=== PATIENT | female | born 1980 | race Caucasian/White ===

== ENCOUNTER 2017-10-30 11:08 | Emergency (ER) | payer MEDICAID ==
[2017-10-30] MEDS ORDERED: LORazepam INJ* 2 MG/ML 1 ML VIAL IV PUSH ONE (12:15)
[2017-10-30] MEDS ORDERED: diPHENhydraMINE IV* 50 MG/ML 1 ml VIAL (BENADRYL) ONE ×2 (12:30)
[2017-10-30] MEDS ORDERED: Haloperidol INJ IV/IM* 5 MG/ML AMP ONE ×2 (12:30)
[2017-10-30] MEDS ORDERED: LORazepam INJ* 2 MG/ML 1 ML VIAL ONE ×2 (12:30)
--- NOTE | 2017-10-30 13:10 | RAD ---
HISTORY: Syncope COMPARISONS: None VIEWS: 1: frontal portable view of the chest at 12:48 PM FINDINGS: LINES AND TUBES: None. CARDIOMEDIASTINAL SILHOUETTE: The cardiomediastinal silhouette is normal for portable technique. PLEURA: The costophrenic angles are sharp. No pleural abnormalities are noted. LUNG PARENCHYMA: The lungs are clear. ABDOMEN: The upper abdomen is clear. There is no subphrenic gas. BONES AND SOFT TISSUES: No bone or soft tissue abnormalities are noted. IMPRESSION: NO ACTIVE CARDIOPULMONARY DISEASE.
[2017-10-30 13:46] LABS: ABS Basophils 0 10^3/ul (0-0.2); ABS Eosinophils 0 10^3/ul (0-0.6); ABS Lymphocytes 1.1 10^3/ul (1.0-4.8); ABS Monocytes 0.6 10^3/ul (0-0.8); ABS Neutrophils 7.2 10^3/ul (1.5-7.7); ABS Nucleated RBC 0 10^3/ul; Eosinophil % 0.1 % (0-6); Hematocrit 37 % (35-47); Hemoglobin 12.6 g/dl (12.0-16.0); Mean Corpuscular HGB Conc 34 g/dl (31-36); Mean Corpuscular Hemoglobin 31 pg (27-31); Mean Corpuscular Volume 92 fL (80-97); Mean Platelet Volume 10.3 um3 (7.4-10.4); Nucleated Red Blood Cells % 0.1; Platelet Count 205 10^3/ul (150-450); Red Blood Count 4.02 10^6/ul (4.0-5.4); Red Cell Distribution Width 13 % (10.5-15); White Blood Count 8.9 10^3/ul (3.5-10.8)
[2017-10-30 14:02] LABS: EGFR Non-African American 80.5 (>60)
[2017-10-30] MEDS ORDERED: Potassium Chlor TAB* 20 MEQ TAB.ER PO ONE (14:56)
--- NOTE | 2017-10-30 20:45 | RAD ---
HISTORY: Altered mental status, psychosis COMPARISONS: None TECHNIQUE: Multiple contiguous axial CT scans were obtained of the head without intravenous contrast. FINDINGS: HEMORRHAGE/INFARCT: There is no hemorrhage or acute infarct. MASSES/SHIFT: There is no mass or shift. EXTRA-AXIAL SPACES: There are no extra-axial fluid collections. SULCI AND VENTRICLES: The sulci and ventricles are normal in size and position for the patient's stated age. CEREBRUM: There are no focal parenchymal abnormalities. BRAINSTEM: There are no focal parenchymal abnormalities. CEREBELLUM: There are no focal parenchymal abnormalities. VESSELS: The vessels are grossly normal. PARANASAL SINUSES: The paranasal sinuses are clear. ORBITS: The orbits are unremarkable. BONES AND SOFT TISSUE: No bone or soft tissue abnormalities are noted. OTHER: None IMPRESSION: NO ACUTE INTRACRANIAL PATHOLOGY.
[2017-10-31 01:12] VITALS: BP 121/75
--- NOTE | 2017-10-31 01:13 | ED ---
Sotero Amador Tiffany, edgared for Ivonne Valverde MD on 10/31/17 at 0100 . Progress - Progress Note Progress Note: Pt signed out from Dr. Nevarez. John, mental health dye weigher, discussed pt care with Dr. Rascon, psychiatry. Pt feels better with sleep and food. - Consult/PCP Time Called: 11:08 Course/Dx - Course Course Of Treatment: 37 y/o F, signed out from BRIAN Casillas presents with AMS that began 2 weeks ago, worsening 3 days ago. John, mental health dye weigher , discussed pt care with Dr. Rascon, psychiatry. Pt feels better with sleep and food, is agreeable to go home. - Diagnoses Provider Diagnoses: Stress and adjustment reaction Discharge - Sign-Out/Discharge Documenting (check all that apply): Discharge/Admit/Transfer - Discharge Plan Condition: Stable Disposition: HOME Patient Education Materials: Stress (ED) Referrals: Taras Singletary MD [Primary Care Provider] - The documentation as recorded by the Sotero bowens Tiffany accurately reflects the service I personally performed and the decisions made by me, Ivonne Valverde MD.
--- NOTE | 2017-11-02 09:40 | ED ---
Fauzia Amador Rebecca, scribed for Galindo Nevarez MD on 10/30/17 at 1139 . Psychiatric Complaint - HPI Summary HPI Summary: Pt is a 37 y/o F [place]IB[place] who presents to ED due to AMS described as manic per partner. Sx began 2 weeks ago, worsening Saturday night (3 days ago), described as a rather significant manic episode. Partner reports visual and auditory hallucinations as well as decreased sleep. Reports she slept 4 hours last night and 2 hours the night prior. He suspects her symptoms were brought on by recent stress of her graduation from [employer]. No recent trauma or falls. PMHx bipolar disorder - last similar episode was 9 years ago. Treated for Lyme disease with Doxycycline for 1 month, finishing treatment 1 week ago. All history obtained from the patients partner, who accompanies her. Level 5 caveat due to AMS. - History Of Current Complaint Time Seen by Provider: 10/30/17 11:18 Hx Obtained From: Family/Print Developer - Partner Hx From Patient Unobtainable Due To: Altered Mental Status Onset/Duration: Lasting Weeks - 2 weeks, Still Present, Worse Since - 3 days ago Character: Manic Aggravating Factor(s): Recent Stress Alleviating Factor(s): Nothing Associated Signs And Symptoms: Positive: Hallucinating, Sleep Disturbance Related History: Positive For: Prior Psychiatric Issues - Bipolar - Allergies/Home Medications Allergies/Adverse Reactions: Allergies Allergy/AdvReac Type Severity Reaction Status Date / Time No Known Allergies Allergy Verified 10/30/17 14:35 Home Medications: Home Medications NK [No Home Medications Reported] 10/30/17 [History Confirmed 10/30/17] PMH/Surg Hx/FS Hx/Imm Hx Musculoskeletal History: Reports: Other Musculoskeletal History - Hx Lyme disease Psychiatric History: Reports: Hx Bipolar Disorder Infectious Disease History: No Infectious Disease History: Denies: Traveled Outside the [place] in Last 30 Days - Family History Known Family History: Positive: Unknown - Unable to obtain - level 5 caveat - Social History Alcohol Use: Occasionally Substance Use Type: Reports: Marijuana - Nightly Smoking Status (MU): Never Smoked Tobacco Review of Systems Neurological: Other - AMS - manic, hallucinations (auditory and visual), decreased sleep All Other Systems Reviewed And Are Negative: No - Comments Additional Review of Systems Comments: Level 5 caveat - AMS Physical Exam - Summary Physical Exam Summary: VITAL SIGNS: Reviewed. GENERAL: Patient is a well-developed and nourished female who is lying comfortable in the stretcher. Patient is not in any acute respiratory distress. HEAD AND FACE: No signs of trauma. No ecchymosis, hematomas or skull depressions. No sinus tenderness. EYES: PERRLA, EOMI x 2, No injected conjunctiva, no nystagmus. EARS: Hearing grossly intact. Ear canals and tympanic membranes are within normal limits. MOUTH: Oropharynx within normal limits. NECK: Supple, trachea is midline, no adenopathy, no JVD, no carotid bruit, no c- spine tenderness, neck with full ROM. CHEST: Symmetric, no tenderness at palpation LUNGS: Clear to auscultation bilaterally. No wheezing or crackles. CVS: Regular rate and rhythm, S1 and S2 present, no murmurs or gallops appreciated. EXTREMITIES: FROM in all major joints, no edema, no cyanosis or clubbing. NEURO: Alert but not oriented. SKIN: Dry and warm GCS: 13 Triage Information Reviewed: Yes Vital Signs On Initial Exam: Initial Vitals Temp Pulse Resp BP Pulse Ox 98.7 F 72 18 112/77 98 10/30/17 11:19 10/30/17 11:19 10/30/17 11:19 10/30/17 11:19 10/30/17 11:19 Vital Signs Reviewed: Yes Completion Of Physical Exam Limited Due To: Altered Mental Status Diagnostics - Vital Signs Vital Signs Temp Pulse Resp BP Pulse Ox 10/30/17 11:19 98.7 F 72 18 112/77 98 - Laboratory Lab Results: Lab Results 10/30/17 10/30/17 Range/Units 13:16 13:16 WBC 8.9 (3.5-10.8) 10^3/ul RBC 4.02 (4.0-5.4) 10^6/ul Hgb 12.6 (12.0-16.0) g/dl Hct 37 (35-47) % MCV 92 (80-97) fL MCH 31 (27-31) pg MCHC 34 (31-36) g/dl RDW 13 (10.5-15) % Plt Count 205 (150-450) 10^3/ul MPV 10.3 (7.4-10.4) um3 Neut % (Auto) 80.8 (38-83) % Lymph % (Auto) 12.0 L (25-47) % Hood % (Auto) 6.6 (0-7) % Eos % (Auto) 0.1 (0-6) % Baso % (Auto) 0.5 (0-2) % Absolute Neuts (auto) 7.2 (1.5-7.7) 10^3/ul Absolute Lymphs (auto) 1.1 (1.0-4.8) 10^3/ul Absolute Monos (auto) 0.6 (0-0.8) 10^3/ul Absolute Eos (auto) 0 (0-0.6) 10^3/ul Absolute Basos (auto) 0 (0-0.2) 10^3/ul Absolute Nucleated RBC 0 10^3/ul Nucleated RBC % 0.1 Sodium 139 (139-145) mmol/L Potassium 3.3 L (3.5-5.0) mmol/L Chloride 104 (101-111) mmol/L Carbon Dioxide 20 L (22-32) mmol/L Anion Gap 15 H (2-11) mmol/L BUN 16 (6-24) mg/dL Creatinine 0.81 (0.51-0.95) mg/dL Est GFR ( Amer) 103.5 (>60) Est GFR (Non-Af Amer) 80.5 (>60) BUN/Creatinine Ratio 19.8 (8-20) Glucose 82 (70-100) mg/dL Calcium 9.4 (8.6-10.3) mg/dL Total Bilirubin 0.60 (0.2-1.0) mg/dL AST 82 H (13-39) U/L ALT 34 (7-52) U/L Alkaline Phosphatase 64 (34-104) U/L Total Protein 7.9 (6.4-8.9) g/dL Albumin 4.7 (3.2-5.2) g/dL Globulin 3.2 (2-4) g/dL Albumin/Globulin Ratio 1.5 (1-3) TSH 1.36 (0.34-5.60) mcIU/mL Beta HCG, Quant < 0.60 mIU/mL Salicylates < 2.50 (<30) mg/dL Acetaminophen < 15 mcg/mL Serum Alcohol < 10 (<10) mg/dL Result Diagrams: 10/30/17 13:16 10/30/17 13:16 Lab Statement: Any lab studies that have been ordered have been reviewed, and results considered in the medical decision making process. - Radiology CXR Xray Interpretation: No Acute Changes - NO ACTIVE CARDIOPULMONARY DISEASE. ED physician reviewed this radiology report. Radiology Interpretation Completed By: Radiologist - CT Brain CT CT Interpretation: No Acute Changes - NO ACUTE INTRACRANIAL PATHOLOGY. ED physician reviewed this report. CT Interpretation Completed By: Radiologist Course/Dx - Course Assessment/Plan: This patient is a 37-year-old female who presents to the emergency department with chief complaint of a manic episode. Patient is unable to give any history most of the history is obtained by the . The patient became agitated, not cooperative and danger to herself and others 4 the patient was given Benadryl, Haldol and Ativan. Now the patient is resting comfortable. Blood test results without any significant abnormality except for potassium level of 3.3. Chest x-ray impression: No active cardiopulmonary disease. Head CT impression: no acute intracranial pathology. Plan the patient is hemodynamically and resting comfortable in the stretcher. At this point the patient is medically cleared. She is awaiting for mental health evaluation. At evaluation approximately 4:30 PM the patient is alert and oriented 3. The patient is also resting comfortably on the stretcher. At 7: 30 PM the patient is alert and oriented 3 and she is lying comfortable in the stretcher. AT 9:10 PM the patient is hemodynamically stable and alert and oriented 3. 10 PM the patient was awaiting for mental health elevations. She is hemodynamically stable. She will be signed out to Dr. Valverde at shift change - Differential Dx/Clinical Impression Differential Diagnosis/HQI/PQRI: Positive: Acute Psychosis, Anxiety, Other - Alida Provider Diagnosis: Alida Discharge - Sign-Out/Discharge Documenting (check all that apply): Sign-Out Patient Signing out patient TO: Ivonne Valverde - Discharge Plan Condition: Stable Referrals: Taras Singletary MD [Primary Care Provider] - - Billing Disposition and Condition Condition: STABLE The documentation as recorded by the Fauzia bowens Rebecca accurately reflects the service I personally performed and the decisions made by Roque crockett Walter, MD.
== END 2017-10-31 01:11 | disposition home or self-care (01) ==
LOC: ED 11:08
DX: F30.9 Manic episode, unspecified (principal); Z86.19 Personal history of other infectious and parasitic diseases
CPT/HCPCS: 36415; 70450; 71045; 80053; 80320; 80329; 84443; 84702; 85025; 96374; 96375; 99284; A9270-GY; G0480; J1200; J1630; J2060

== ENCOUNTER 2019-05-16 14:19 | Emergency (ER) | payer SELFPAY ==
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
[2019-05-16] MEDS ORDERED: Lidocaine 1% INJ* 10 MG/ML 30 ML SDV ONE (16:07)
[2019-05-16] MEDS ORDERED: Morphine 4 MG/ML VIAL (1 ml) 4 MG/ML VIAL IV ONE (16:15)
[2019-05-16] MEDS ORDERED: Ondansetron INJ* 2 MG/ML VIAL IV ONE (18:20)
[2019-05-16] MEDS ORDERED: HYDROcodone/ACETAMIN 5-325 MG* 1 TAB PO ONE ×2 (18:20→18:35)
[2019-05-16 18:52] VITALS: BP 115/72
== END 2019-05-16 18:45 | disposition home or self-care (01) ==
LOC: ED 14:19
DX: S52.501A Unspecified fracture of the lower end of right radius, initial encounter for closed fracture (principal); V49.40XA Driver injured in collision with unspecified motor vehicles in traffic accident, initial encounter; Y92.410 Unspecified street and highway as the place of occurrence of the external cause
CPT/HCPCS: 96374; 96375; 99282; J2270; J2405

== ENCOUNTER 2019-05-19 13:14 | Day surgery (SDC) | payer OTHER ==
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
[~2019-05-19 13:14] MED LIST: Buffered Lidocaine 1% SYRIN* 1 ML/SYRINGE INTRADERM ONE; Dexamethasone IV* 4 MG/ML 1 ML (4 MG) IV SLOW PU ONE; Famotidine IV* 10 MG/ML 2 ML (20 mg) IV ONE; Lactated Ringers 1000 ML Bag* 1,000 ML IV SCH
[2019-05-19] MEDS ORDERED: ceFAZolin 2 GM PREMIX in ORs 2 GM/50 ML BAG ONE (13:34)
[2019-05-19] MEDS ORDERED: Famotidine IV* 10 MG/ML 2 ML (20 mg) ONE (13:34)
[2019-05-19] MEDS ORDERED: Dexamethasone IV* 4 MG/ML 1 ML (4 MG) ONE (13:34)
[2019-05-19] MEDS ORDERED: Bupivacaine 0.5% SDV PF* 30ML VIAL ONE (15:04)
[2019-05-19] MEDS ORDERED: Propofol* 10 MG/ML 20 ML BTL ONE (15:28)
[2019-05-19] MEDS ORDERED: Ketorolac INJ* 30 MG/ML 1 ML VIAL ONE (15:28)
[2019-05-19] MEDS ORDERED: fentaNYL* 50 MCG/ML 5 ML VIAL (250 MCG VIAL) ONE (15:28)
[2019-05-19] MEDS ORDERED: Ondansetron INJ* 2 MG/ML VIAL ONE (15:28)
[2019-05-19] MEDS ORDERED: Midazolam* 1 MG/ML 5 ML VIAL (5 MG) ONE (15:28)
[2019-05-19] MEDS ORDERED: Lidocaine 2% PF * 5 ML VIAL ONE (15:47)
[2019-05-19] MEDS ORDERED: Naloxone* 0.4 MG/ML 1 ML VIAL IV PRN (16:11)
[2019-05-19] MEDS ORDERED: Scopolamine 1.5 mg* PATCH TRANSDERM PRN (16:11)
[2019-05-19] MEDS ORDERED: DiMENhydriNATE IV* 50 MG/ML VIAL IV PUSH PRN (16:11)
[2019-05-19] MEDS ORDERED: fentaNYL* 50 MCG/ML 2 ML VIAL (100 MCG VIAL) IV PRN (16:11)
[2019-05-19] MEDS ORDERED: HYDROmorphone INJ1* 1 MG/ML SYRINGE IV PRN (16:11)
[2019-05-19] MEDS ORDERED: oxyCODONE/Acetamin 5/325 MG* TAB PO PRN (16:11)
[2019-05-19] MEDS ORDERED: Ondansetron INJ* 2 MG/ML VIAL IV PRN (16:11)
[2019-05-19] MEDS ORDERED: fentaNYL* 50 MCG/ML 2 ML VIAL (100 MCG VIAL) ONE (17:19)
[2019-05-19] MEDS ORDERED: oxyCODONE/Acetamin 5/325 MG* TAB ONE (17:19)
[2019-05-19 17:39] VITALS: BP 132/78
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
== END 2019-05-19 18:02 | disposition home or self-care (01) ==
LOC: OREAST 13:14
PROVIDERS: ATTEND Orthopaedic Surgery
DX: S52.571A Other intraarticular fracture of lower end of right radius, initial encounter for closed fracture (principal); Z87.891 Personal history of nicotine dependence; V89.2XXA Person injured in unspecified motor-vehicle accident, traffic, initial encounter; Y92.9 Unspecified place or not applicable
CPT/HCPCS: 76000; A9270-GY; C1713; C1776; J0690; J1100; J1885; J2250; J2405; J2704; J3010; J3490